=== PATIENT | female | born 1995 | race Caucasian/White ===

== ENCOUNTER → 2017-12-10 | Outpatient (REF) | payer OTHER ==
[~2017-12-10] MED LIST: FLUO-201 PO; NORG1TAB80 PO; PHEN200T32 PO; SULF-198 PO
[2017-12-10 20:31] LABS: PLATELET COUNT, AUTOMATED 279 K/uL (150-450)
== END ==
PROVIDERS: ATTEND Family Medicine
DX: R59.9 Enlarged lymph nodes, unspecified (principal)
CPT/HCPCS: 82040; 82247; 82310; 82374; 82435; 82565; 82947; 84075; 84132; 84155; 84295; 84450; 84460; 84520; 85025; 85651

== ENCOUNTER 2018-10-04 01:13 | Day surgery (SDC) | payer OTHER ==
[~2018-10-04] VITALS: Ht 165.1 cm; Wt 52.2 kg
[2018-10-04] VITALS (11 sets, daily range): BP systolic 83–101; BP diastolic 44–61
[~2018-10-04 01:13] MED LIST changes: +ALPR-429 PO; +FLUV100T21 PO
[2018-10-04] MEDS ORDERED: PROPOFOL EMUL(*) 10MG/ML 20 ML 20 ML ONE ×2 (07:14→13:03)
[2018-10-04] MEDS ORDERED: LIDOCAINE/SOD BICARB 8.4% SYR ID ONE (11:25)
[2018-10-04] MEDS ORDERED: NORMOSOL R SOLN(*) 1000 ML BAG 1,000 ML IV PRN (11:25)
--- NOTE | 2018-10-04 13:41 | Short(Outpt) Discharge Summary ---
Discharge Summary Reason for Hosp/Final Diag: (1) Blood per rectum Hospital Course & Plan: pt presented for colonoscopy. she tolerated the procedure well and will be discharged home when criteria met. Departure Discharge to: Home Discharge Instructions Home Meds Reported Medications Alprazolam (XANAX) 0.5 Mg Tablet, 1 TAB PO PRN, TAB 09/11/18 Fluvoxamine Maleate (FLUVOXAMINE MALEATE) 100 Mg Tablet, 100 MG PO 09/11/18 Diet: Regular Activity: As Tolerated Special Instructions: we will call you in 10 days with results. MELISSA REA Oct 04, 2018 13:41
--- NOTE | 2018-10-04 13:54 | NUR ---
SBAR given by BP low reassessed at 1334 hr, 1340 hr, and 1345 hr. Remained around 80/40. CTM 1345 Given second bag of fluids at 1345 kept open 1350 Dr Vinson came in and talked with the father. 1413 Pt first movement. States she is sleepy, no nausea no pain reported by client when asked. Heart rate 60bpm 1418 given pt warm blanket.
--- NOTE | 2018-10-04 14:31 | NUR ---
1420 Given water and ice. tolerated a sip of water well. In [employer] position resting with father in room
--- NOTE | 2018-10-04 15:27 | NUR ---
1440 Dr Vinson entered room and discussed with pt his findings. 1441 Given pt han crackers, cheese, and juice to sip on. Pt still groggy and waking from anesthesia. VS are WNL. CTM. 1450 IV DC, Instructions given, assessment performed.
== END 2018-10-04 15:20 | disposition home or self-care (01) ==
LOC: OR 01:13
PROVIDERS: ATTEND Surgery
DX: K63.5 Polyp of colon (principal); K62.89 Other specified diseases of anus and rectum
CPT/HCPCS: 00811; 45385; 81025; 88305; J2704